=== PATIENT | female | born 1950 | race American Indian/Alaskan Native ===

== ENCOUNTER 2017-04-03 20:06 | Emergency (ER) | payer MEDICARE ==
[2017-04-04] MEDS ORDERED: TORADOL IM ONE (00:09)
--- NOTE | 2017-04-04 00:15 | Emergency Department Report ---
ED Fall HPI - General Chief Complaint: Fall Stated Complaint: FALL Time Seen by Provider: 04/03/17 23:54 Source: patient Mode of arrival: Ambulatory - History of Present Illness Initial Comments: Pt presents to ED with c/o fall while shopping at [employer]. 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 Pt denies head injury. She broke the fall with her hands. 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 denies: headache, neck pain, numbness, weakness, chest paint, shortness of breath, abdominal pain, hematuria, lightheaded, vertigo, confusion - Related Data Previous Rx's Medication Instructions Recorded Last Taken Type Aspirin EC [Aspirin Enteric Coated 81 mg PO ONCE #30 tablet. 03/10/13 Rx TAB] Simvastatin [Zocor TAB] 20 mg PO QHS #30 tablet 03/10/13 07/21/15 Rx Amoxicillin/K Clav Tab [Augmentin 1 each PO Q12HR #14 tablet 07/24/15 Unknown Rx 500 MG TAB] ALBUTEROL Inhaler [ProAir HFA 2 puff IH QID PRN #1 inhalation 02/19/16 Unknown Rx Inhaler] Fluticasone [Flonase] 1 spray NS QDAY #1 bottle 02/19/16 Unknown Rx guaiFENesin/CODEINE [Robitussin AC] 5 ml PO Q6H PRN #100 oral.liqd 02/19/16 Unknown Rx Cephalexin [Keflex] 1,000 mg PO Q12HR #40 cap 04/04/17 Unknown Rx HYDROcodone/APAP 7.5-325 [Taylor 1 each PO Q6HR PRN #20 tablet 04/04/17 Unknown Rx 7.5/325] Ibuprofen [Motrin 800 MG tab] 800 mg PO Q8HR PRN #30 tablet 04/04/17 Unknown Rx Methocarbamol [Robaxin-750] 1,500 mg PO TID #30 tablet 04/04/17 Unknown Rx Allergies Allergy/AdvReac Type Severity Reaction Status Date / Time Sulfa (Sulfonamide Allergy Rash Verified 03/07/13 17:03 Antibiotics) ED Review of Systems ROS: Stated complaint: FALL Other details as noted in HPI Comment: All other systems reviewed and negative Constitutional: denies: chills, diaphoresis, fever, malaise, weakness Eyes: denies: eye pain, eye discharge, vision change ENT: denies: throat pain, dental pain, hearing loss, epistaxis Respiratory: denies: cough, orthopnea, shortness of breath Cardiovascular: denies: chest pain Endocrine: no symptoms reported Gastrointestinal: denies: abdominal pain, nausea, diarrhea, constipation, hematemesis Genitourinary: denies: urgency, dysuria, frequency, hematuria, discharge Musculoskeletal: joint swelling (bot ankles) Skin: denies: change in color ED Past Medical Hx - Past Medical History Previous Medical History?: Yes Hx Hypertension: Yes Hx Congestive Heart Failure: No Hx Diabetes: No Hx Arthritis: Yes Hx Asthma: No Hx COPD: No Additional medical history: Psoriasis, elevated cholesterol - Surgical History Past Surgical History?: Yes Hx Breast Surgery: Yes Additional Surgical History: Hysterectomy - Social History Smoking Status: Never Smoker Substance Use Type: None - Medications Home Medications: Home Medications Medication Instructions Recorded Confirmed Last Taken Type Aspirin EC [Aspirin Enteric Coated 81 mg PO ONCE #30 tablet. 03/10/1307/21/15 Rx TAB] Simvastatin [Zocor TAB] 20 mg PO QHS #30 tablet 03/10/13 07/21/15 07/21/15 Rx Amoxicillin/K Clav Tab [Augmentin 1 each PO Q12HR #14 tablet 07/24/15 Unknown Rx 500 MG TAB] ALBUTEROL Inhaler [ProAir HFA 2 puff IH QID PRN #1 inhalation 02/19/16 Unknown Rx Inhaler] Fluticasone [Flonase] 1 spray NS QDAY #1 bottle 02/19/16 Unknown Rx guaiFENesin/CODEINE [Robitussin AC] 5 ml PO Q6H PRN #100 oral.liqd 02/19/16 Unknown Rx Cephalexin [Keflex] 1,000 mg PO Q12HR #40 cap 04/04/17 Unknown Rx HYDROcodone/APAP 7.5-325 [Taylor 1 each PO Q6HR PRN #20 tablet 04/04/17 Unknown Rx 7.5/325] Ibuprofen [Motrin 800 MG tab] 800 mg PO Q8HR PRN #30 tablet 04/04/17 Unknown Rx Methocarbamol [Robaxin-750] 1,500 mg PO TID #30 tablet 04/04/17 Unknown Rx ED Physical Exam - General Limitations: No Limitations General appearance: in no apparent distress, in distress (moderate distress) - Head Head exam: Present: atraumatic, normocephalic - Eye Eye exam: Present: normal appearance, PERRL, EOMI. Absent: scleral icterus, conjunctival injection, nystagmus - ENT ENT exam: Present: normal exam, normal orophraynx, mucous membranes moist, TM's normal bilaterally - Neck Neck exam: Present: normal inspection, full ROM. Absent: tenderness, meningismus, lymphadenopathy, thyromegaly - Respiratory Respiratory exam: Present: normal lung sounds bilaterally. Absent: respiratory distress, wheezes, rales, rhonchi, chest wall tenderness, accessory muscle use, decreased breath sounds - Cardiovascular Cardiovascular Exam: Present: regular rate, normal rhythm, normal heart sounds. Absent: systolic murmur, diastolic murmur - GI/Abdominal GI/Abdominal exam: Present: soft, distended (obese abdomen), normal bowel sounds. Absent: tenderness, guarding, rebound, rigid, hyperactive bowel sounds , hypoactive bowel sounds - Rectal Rectal exam: Present: deferred - Expanded Lower Extremity Exam Left Hip exam: Present: normal inspection, full ROM. Absent: tenderness, laceration , ecchymosis Upper Leg exam: Present: normal inspection, full ROM. Absent: tenderness, swelling, abrasion, laceration Knee exam: Present: normal inspection, full ROM. Absent: tenderness, swelling, dislocation, erythema Lower Leg exam: Present: normal inspection, full ROM. Absent: laceration, ecchymosis Ankle exam: Present: tenderness, swelling. Absent: normal inspection, full ROM , abrasion, laceration, ecchymosis, crepidus, dislocation Foot/Toe exam: Present: normal inspection, tenderness. Absent: full ROM, swelling, abrasion, laceration, ecchymosis Neuro vascular tendon exam: Present: no vascular compromise Gait: Positive: not tested/not observed Right Hip exam: Present: normal inspection, full ROM. Absent: tenderness, swelling, abrasion, laceration, ecchymosis Upper Leg exam: Present: normal inspection, full ROM. Absent: tenderness, swelling, abrasion, laceration, ecchymosis Knee exam: Present: normal inspection, full ROM. Absent: tenderness, swelling, dislocation, erythema, effusion Lower Leg exam: Present: normal inspection, full ROM. Absent: tenderness, laceration, ecchymosis Ankle exam: Present: tenderness, swelling. Absent: normal inspection, full ROM , abrasion, laceration, ecchymosis, deformity, crepidus, dislocation Foot/Toe exam: Present: normal inspection, tenderness. Absent: full ROM, swelling, abrasion, laceration, ecchymosis, deformity, dislocation, erythema, amputation Neuro vascular tendon exam: Present: no vascular compromise Gait: Positive: not tested/not observed - Back Exam Back exam: Present: normal inspection, full ROM. Absent: tenderness, CVA tenderness (L), muscle spasm, paraspinal tenderness - Neurological Exam Neurological exam: Present: alert, oriented X3, CN II-XII intact ED Course Vital Signs 04/03/17 04/04/17 20:35 00:18 Temperature 98.6 F Pulse Rate 62 Respiratory 14 18 Rate Blood Pressure 141/61 O2 Sat by Pulse 98 Oximetry ED Medical Decision Making - Radiology Data Radiology results: image reviewed interpreted by me: fracture distal portion left fibula. No fx seen right ankle Critical Care Time: No Critical care attestation.: If time is entered above; I have spent that time in minutes in the direct care of this critically ill patient, excluding procedure time. ED Disposition Clinical Impression: Closed fracture of left distal fibula, Fall, Sprain of right ankle Disposition: DC-01 TO HOME OR SELFCARE Is pt being admited?: No Does the pt Need Aspirin: No Condition: Stable Instructions: Ankle Fracture (ED), Ankle Sprain (ED), Ankle Stirrup Splint (ED) , Crutch Instructions (ED) Additional Instructions: Avoid weight bearing on your left ankle. Use crutches to assist your gait. Follow up with orthopedic surgeon. Return back to ED if your problem gets worse Prescriptions: Cephalexin [Keflex] 1,000 mg PO Q12HR #40 cap HYDROcodone/APAP 7.5-325 [Taylor 7.5/325] 1 each PO Q6HR PRN #20 tablet PRN Reason: Pain Ibuprofen [Motrin 800 MG tab] 800 mg PO Q8HR PRN #30 tablet PRN Reason: Pain Methocarbamol [Robaxin-750] 1,500 mg PO TID #30 tablet Referrals: PRIMARY CAREMD [Primary Care Provider] - 3-5 Days PATRICIA GARRETT MD [Staff Physician] - 3-5 Days (Pls call office to set up an appointment) Time of Disposition: 03:12
[2017-04-04] MEDS ORDERED: MORPHINE IM ONE (02:14)
[2017-04-04] MEDS ORDERED: ZOFRAN ODT PO ONE (02:14)
[2017-04-04 04:27] VITALS: BP 132/62
--- NOTE | 2017-04-04 10:06 | XRay Report ---
RIGHT ANKLE, 3 views: History: Pain after fall. Findings: Mild soft tissue swelling is identified. No acute osseous abnormality or joint pathology is identified. The fifth metatarsal base is intact. Small plantar spur. Impression: Soft tissue swelling. No acute osseous injury.
--- NOTE | 2017-04-04 10:06 | XRay Report ---
LEFT ANKLE, 3 views: History: Pain after fall. Bone mineralization is normal. No acute osseous abnormality or joint pathology is identified. Moderate diffuse soft tissue swelling is noted. Plantar spur. IMPRESSION: Soft tissue swelling. No acute osseous injury.
== END 2017-04-04 04:39 | disposition home or self-care (01) ==
LOC: ED 20:06
DX: S82.832A Other fracture of upper and lower end of left fibula, initial encounter for closed fracture (principal); S93.401A Sprain of unspecified ligament of right ankle, initial encounter; W19.XXXA Unspecified fall, initial encounter; Y93.9 Activity, unspecified; Y92.89 Other specified places as the place of occurrence of the external cause; Y99.9 Unspecified external cause status; I10 Essential (primary) hypertension; M19.90 Unspecified osteoarthritis, unspecified site; Z79.82 Long term (current) use of aspirin; Z88.2 Allergy status to sulfonamides
CPT/HCPCS: 29515; 73610; 96372; 99284; J1885; J2270; Q0162

== ENCOUNTER 2018-03-18 13:27 | Emergency (ER) | payer BC, MEDICARE ==
[2018-03-18] MEDS ORDERED: TYLENOL ONE (14:02)
[2018-03-18] MEDS ORDERED: TYLENOL PO ONE (14:02)
[2018-03-18] MEDS ORDERED: DECADRON IM ONE (15:45)
[2018-03-18] MEDS ORDERED: ATROVENT IH ONE (15:45)
[2018-03-18] MEDS ORDERED: NORCO 5/325 PO ONE (15:45)
[2018-03-18] MEDS ORDERED: PEPCID PO ONE (15:45)
[2018-03-18] MEDS ORDERED: PROVENTIL IH ONE (15:45)
--- NOTE | 2018-03-18 15:48 | Emergency Department Report ---
Blank Doc - Documentation Documentation: Patient is a 67-year-old female who states she's had some cough chest discomfort and wheezing for the past 3 days. Also patient is complaining of some epigastric discomfort. Patient states she's had some off-and-on leg swelling for the past 3 weeks. Focused physical exam patient does have pedal edema that is trace. Patient has diffuse wheeze. Patient removed to a treatment room for a nebulized treatment. Chest x-ray will be performed as well. The patient will be reassessed.
--- NOTE | 2018-03-18 16:23 | XRay Report ---
FINAL REPORT EXAM: XR CHEST ROUTINE 2V HISTORY: cough with wheeze TECHNIQUE: PA and lateral views of the chest Comparison: None FINDINGS: There is no evidence of focal infiltrate, pneumothorax or pleural fluid collection. The cardiac silhouette is enlarged. The thoracic aorta is mildly tortuous with atherosclerotic vascular calcification. The bony structures are notable for spondylitic change of the thoracic spine. IMPRESSION: 1. No evidence of an acute pulmonary process. 2. Enlarged cardiac silhouette. 3. Atherosclerotic vascular calcification thoracic aorta.
--- NOTE | 2018-03-18 17:22 | Emergency Department Report ---
Minor Respiratory - HPI Chief Complaint: Upper Respiratory Infection Stated Complaint: FEET SWOLLEN Time Seen by Provider: 03/18/18 15:25 Duration: 1 Day Pain Location: Chest (chest discomfort with cough) Severity: mild Minor Respiratory: Yes Able to Tolerate Fluids, Yes Cough, Yes Chest Pain ( chest discomfort), No Rhinorrhea, No Sore Throat, No Ear Pain, No Sick Contacts , No Hemoptysis, No Shortness of Breath, No Fever Other History: This is a 67-year-old -[place] female who presents with a cough and chest discomfort that started yesterday. Past medical history of hypertension and arthritis. Patient states she went to urgent care earlier today and they told her to follow here because she her feet are swollen. She was diagnosed with upper respiratory infection. Patient states cough is productive. Patient states swelling to ankles and feet started 2-3 weeks ago without pain. Patient states the swelling is normal for her. Patient denies shortness of breath, fever, rhinorrhea, body aches, and abdominal pain. ED Review of Systems ROS: Stated complaint: FEET SWOLLEN Other details as noted in HPI Constitutional: denies: chills, fever ENT: denies: ear pain, throat pain, dental pain, hearing loss, epistaxis, congestion Respiratory: cough. denies: shortness of breath, wheezing Cardiovascular: chest pain (chest discomfort with cough), edema (bilateral lower extremity swelling from ankles to feet). denies: palpitations Gastrointestinal: denies: abdominal pain, nausea, diarrhea Skin: denies: rash, lesions Neurological: denies: headache, weakness, paresthesias Psychiatric: denies: anxiety, depression ED Past Medical Hx - Past Medical History Hx Hypertension: Yes Hx Congestive Heart Failure: No Hx Diabetes: No Hx Arthritis: Yes Hx Asthma: No Hx COPD: No Additional medical history: Psoriasis, elevated cholesterol - Surgical History Hx Breast Surgery: Yes Additional Surgical History: Hysterectomy - Social History Smoking Status: Never Smoker Substance Use Type: None - Medications Home Medications: Home Medications Medication Instructions Recorded Confirmed Last Taken Type Aspirin EC [Aspirin Enteric Coated 81 mg PO ONCE #30 tablet. 03/10/1307/21/15 Rx TAB] Simvastatin [Zocor TAB] 20 mg PO QHS #30 tablet 03/10/13 07/21/15 07/21/15 Rx Amoxicillin/K Clav Tab [Augmentin 1 each PO Q12HR #14 tablet 07/24/15 Unknown Rx 500 MG TAB] ALBUTEROL Inhaler (OR & NICU) 2 puff IH QID PRN #1 inhalation 02/19/16 Unknown Rx [ProAir HFA Inhaler] Fluticasone [Flonase] 1 spray NS QDAY #1 bottle 02/19/16 Unknown Rx guaiFENesin/CODEINE [Robitussin AC] 5 ml PO Q6H PRN #100 oral.liqd 02/19/16 Unknown Rx HYDROcodone/APAP 7.5-325 [Loris 1 each PO Q6HR PRN #20 tablet 04/04/17 Unknown Rx 7.5/325] Ibuprofen [Motrin 800 MG tab] 800 mg PO Q8HR PRN #30 tablet 04/04/17 Unknown Rx Methocarbamol [Robaxin-750] 1,500 mg PO TID #30 tablet 04/04/17 Unknown Rx Minor Respiratory Exam - Exam General: Vital signs noted. No distress. Alert and acting appropriately. HEENT: Yes Moist Mucous Membranes, Yes Rhinorrhea (turbinate is mildly congested with clear discharge), No Pharyngeal Erythema, No Pharyngeal Exudates , No Conjuctival Injection, No Frontal Tenderness, No Maxillary Tenderness Ear: Neither TM Bulge, Neither TM Erythema, Neither EAC Pain, Neither EAC Discharge Neck: Yes Supple, No Adenopathy Lungs: Yes Good Air Exchange, No Wheezes, No Ronchi, No Stridor, No Cough, No Labored Respirations, No Retractions, No Use of Accessory Muscles, No Other Abnormal Lung Sounds Heart: Yes Regular, No Murmur Abdomen: Yes Normal Bowel Sounds, No Tenderness, No Peritoneal Signs Skin: Yes Edema (bilateral nonpitting edema from ankles to feet), No Rash Neurologic: Alert and oriented, no deficits. Musculoskeletal: Unremarkable. ED Course Vital Signs 03/18/18 03/18/18 13:53 16:28 Temperature 98.8 F Pulse Rate 70 Respiratory 18 18 Rate Blood Pressure 132/67 O2 Sat by Pulse 97 Oximetry ED Medical Decision Making - Radiology Data Radiology results: report reviewed, image reviewed - Medical Decision Making This patient was examined by myself and Dr. Rajan in emergency room. Patient is stable and in no distress. Vitals normal. Chest xray has been obtained and dictated by radiologist. Patient notified of x-ray results with no questions. Follow-up with cardiology for further evaluation and continuous care. Discharged home stable. Encouraged to do supportive care for URI. Follow up with Primary Care Provider at [facility] in 2-3 days. Critical care attestation.: If time is entered above; I have spent that time in minutes in the direct care of this critically ill patient, excluding procedure time. ED Disposition Clinical Impression: Enlargement of cardiac chamber on chest x-ray Upper respiratory infection Qualifiers: URI type: acute nasopharyngitis (common cold) Qualified Code(s): J00 - Acute nasopharyngitis [common cold] Disposition: TO HOME OR SELFCARE Is pt being admited?: No Does the pt Need Aspirin: No Condition: Stable Instructions: Upper Respiratory Infection (ED) Additional Instructions: Increase fluid intake and rest. Wash hands frequently. Continue taking Tylenol or ibuprofen to control fever. Follow up with cardiology within the next week for further evaluation. F/U with Primary Care Provider. Return to ER if fever, SOB, or difficulty breathing after 48 hours of supportive care. Referrals: [facility] [Outside] - 3-5 Days YVROSE HEATH MD [Staff Physician] - 3-5 Days Time of Disposition: 17:31 Print Language: KINYARWANDA
[2018-03-18 17:58] VITALS: BP 136/76
== END 2018-03-18 17:55 | disposition home or self-care (01) ==
LOC: ED 13:27
DX: J00 Acute nasopharyngitis [common cold] (principal); I10 Essential (primary) hypertension; M19.90 Unspecified osteoarthritis, unspecified site; E78.00 Pure hypercholesterolemia, unspecified
CPT/HCPCS: 71046; 94640; 96372; 99283; J1100

== ENCOUNTER 2018-08-18 13:12 | Emergency (ER) | payer BC, MEDICARE ==
--- NOTE | 2018-08-18 13:21 | Emergency Department Report ---
Blank Doc - Documentation Documentation: This is a 68-year-old female that present with ground level fall that tripped and fall. Patient complaint of pelvic pain and bilateral knee pain. Denies any head or back pain or trauma. Denies any other complaints. This initial assessment diagnostic orders/clinical plan/treatment(s) is/are subject to change based on patient's health status, clinical progression and re- assessment by fellow clinical providers in the ED. Further treatment and workup at subsequent clinical providers discretion. Patient/guardians urged not to elope from ED s their condition may be serious if not clinically assessed and managed. Initial orders include: 1-Patient sent to [facility] for further evaluation and treatment 2- labs 3- xrays
[2018-08-18 13:23] VITALS: BP 142/75
[2018-08-18 14:12] LABS: Bilirubin,Urine NEG (Negative); Blood,Urine NEG (Negative); Color,Urine Yellow (Yellow); Mucus,Urine FEW /HPF; Protein,Urine <15 mg/dL mg/dL (Negative)
[2018-08-18 14:49] LABS: Basophils % (Auto) 0.3 % (0.0-1.8); Eosinophils # (Auto) 0.1 K/mm3 (0.0-0.4); Eosinophils % (Auto) 1.4 % (0.0-4.3); Hematocrit 37.2 % (30.3-42.9); Hemoglobin 12.4 gm/dl (10.1-14.3); Lymphocytes # (Auto) 2.7 K/mm3 (1.2-5.4); Lymphocytes % (Auto) 36.5 % (13.4-35.0); Mean Corpuscular HGB Conc 33 % (30-34); Mean Corpuscular Volume 89 fl (79-97); Monocytes # (Auto) 0.4 K/mm3 (0.0-0.8); Monocytes % (Auto) 5.2 % (0.0-7.3); Platelet Count 236 K/mm3 (140-440); Red Cell Distribution Width 12.8 % (13.2-15.2)
[2018-08-18 15:04] LABS: Alanine Aminotransferase 15 units/L (7-56); Albumin 4.3 g/dL (3.9-5); BUN/Creatinine Ratio 10; Blood Urea Nitrogen 7 mg/dL (7-17); Calcium 9.9 mg/dL (8.4-10.2); Hemolysis Index 4
--- NOTE | 2018-08-18 15:28 | XRay Report ---
LUMBAR SPINE RADIOGRAPHS INDICATION: Low back pain. COMPARISON: None similar. FINDINGS: AP and lateral lumbar spine radiographs demonstrate normal vertebral body stature, alignment and disc heights except for L5-S1 disc narrowing questioned. Multilevel lumbar and imaged lower thoracic spine degenerative spurring noted. Lower lumbar facet arthropathy may also be present. Nonobstructive bowel gas pattern. Intact SI joints. CONCLUSION: No acute radiographic abnormality with multilevel spinal spondylosis noted, as described. Thank you for the opportunity to participate in this patient's care.
--- NOTE | 2018-08-18 15:31 | XRay Report ---
BILATERAL KNEE RADIOGRAPHS INDICATION: Low back pain. COMPARISON: None similar. FINDINGS: AP, lateral and oblique bilateral knee radiographs demonstrate intact overall articulation. Bilateral degenerative changes noted, most involving the patellofemoral compartments with narrowing and patellar articular pole spurring, right more than left. No significant suprapatellar effusion. Mild degenerative spurring also involves the tibial spines and the medial compartment, right more than left. Possible osteopenia. CONCLUSION: Bilateral knee osteoarthritic changes, right greater than left, as described. Please correlate. Thank you for the opportunity to participate in this patient's care.
--- NOTE | 2018-08-18 15:58 | Emergency Department Report ---
ED General Adult HPI - General Chief complaint: Fall Stated complaint: ABD PAIN/LEG PAIN Time Seen by Provider: 08/18/18 13:19 Source: EMS Mode of arrival: Ambulatory Limitations: No Limitations - History of Present Illness Initial comments: Patient is a 68-year-old Female who is presenting with 3 days of lower abdominal pain. Patient states she has a pressure sensation in the suprapubic region with radiation to the back. Her pain as a 7 out of 10 in severity. She has dysuria at the end of her urinary stream. Patient also states she's had some night sweats and chills as well. Patient also of note have a fall several days ago on her porch and injured both knees. Patient is having some mild low back pain as well as already mentioned. Patient states knee pain is worse with walking and bearing weight. Severity scale (0 -10): 7 - Related Data Previous Rx's Medication Instructions Recorded Last Taken Type Aspirin EC [Aspirin Enteric Coated 81 mg PO ONCE #30 tablet. 03/10/13 07/21/15 Rx TAB] Simvastatin [Zocor TAB] 20 mg PO QHS #30 tablet 03/10/13 07/21/15 Rx Amoxicillin/K Clav Tab [Augmentin 1 each PO Q12HR #14 tablet 07/24/15 Unknown Rx 500 MG TAB] ALBUTEROL Inhaler (OR & NICU) 2 puff IH QID PRN #1 inhalation 02/19/16 Unknown Rx [ProAir HFA Inhaler] Fluticasone [Flonase] 1 spray NS QDAY #1 bottle 02/19/16 Unknown Rx guaiFENesin/CODEINE [Robitussin AC] 5 ml PO Q6H PRN #100 oral.liqd 02/19/16 Unknown Rx HYDROcodone/APAP 7.5-325 [Ponce 1 each PO Q6HR PRN #20 tablet 04/04/17 Unknown Rx 7.5/325] Ibuprofen [Motrin 800 MG tab] 800 mg PO Q8HR PRN #30 tablet 04/04/17 Unknown Rx Methocarbamol [Robaxin-750] 1,500 mg PO TID #30 tablet 04/04/17 Unknown Rx ALBUTEROL Inhaler (OR & NICU) 2 puff IH QID PRN #1 inhalation 03/20/18 Unknown Rx [ProAir HFA Inhaler] Benzonatate [Tessalon Perles] 100 mg PO Q8HR #10 capsule 03/20/18 Unknown Rx predniSONE [Deltasone] 20 mg PO QDAY #5 tab 03/20/18 Unknown Rx Doxycycline [Vibramycin CAP] 100 mg PO Q12HR #14 capsule 08/18/18 Unknown Rx Phenazopyridine [Pyridium] 100 mg PO TID 2 Days tab 08/18/18 Unknown Rx traMADol [Ultram] 50 mg PO Q6HR PRN #10 tablet 08/18/18 Unknown Rx Allergies Allergy/AdvReac Type Severity Reaction Status Date / Time Sulfa (Sulfonamide Allergy Rash Verified 03/07/13 17:03 Antibiotics) ED Review of Systems ROS: Stated complaint: ABD PAIN/LEG PAIN Other details as noted in HPI Comment: All other systems reviewed and negative ED Past Medical Hx - Past Medical History Previous Medical History?: Yes Hx Hypertension: Yes Hx CVA: No Hx Heart Attack/AMI: No Hx Congestive Heart Failure: No Hx Diabetes: No Hx Deep Vein Thrombosis: No Hx Pulmonary Embolism: No Hx GERD: No Hx Liver Disease: No Hx Renal Disease: No Hx of Cancer: No Hx Sickle Cell Disease: No Hx Arthritis: Yes Hx Headaches / Migraines: No Hx Seizures: No Hx Kidney Stones: No Hx Psychiatric Treatment: No Hx Asthma: No Hx COPD: No Hx Tuberculosis: No Hx Dementia: No Hx HIV: No Additional medical history: Psoriasis, elevated cholesterol - Surgical History Past Surgical History?: Yes Hx Coronary Stent: No Hx Open Heart Surgery: No Hx Pacemaker: No Hx Internal Defibrillator: No Hx Cholecystectomy: No Hx Appendectomy: No Hx Breast Surgery: No Additional Surgical History: Hysterectomy - Social History Smoking Status: Never Smoker Substance Use Type: None - Medications Home Medications: Home Medications Medication Instructions Recorded Confirmed Last Taken Type Aspirin EC [Aspirin Enteric Coated 81 mg PO ONCE #30 tablet. 03/10/13 07/21/15 07/21/15 Rx TAB] Simvastatin [Zocor TAB] 20 mg PO QHS #30 tablet 03/10/13 07/21/15 07/21/15 Rx Amoxicillin/K Clav Tab [Augmentin 1 each PO Q12HR #14 tablet 07/24/15 Unknown Rx 500 MG TAB] ALBUTEROL Inhaler (OR & NICU) 2 puff IH QID PRN #1 inhalation 02/19/16 Unknown Rx [ProAir HFA Inhaler] Fluticasone [Flonase] 1 spray NS QDAY #1 bottle 02/19/16 Unknown Rx guaiFENesin/CODEINE [Robitussin AC] 5 ml PO Q6H PRN #100 oral.liqd 02/19/16 Unknown Rx HYDROcodone/APAP 7.5-325 [Ponce 1 each PO Q6HR PRN #20 tablet 04/04/17 Unknown Rx 7.5/325] Ibuprofen [Motrin 800 MG tab] 800 mg PO Q8HR PRN #30 tablet 04/04/17 Unknown Rx Methocarbamol [Robaxin-750] 1,500 mg PO TID #30 tablet 04/04/17 Unknown Rx ALBUTEROL Inhaler (OR & NICU) 2 puff IH QID PRN #1 inhalation 03/20/18 Unknown Rx [ProAir HFA Inhaler] Benzonatate [Tessalon Perles] 100 mg PO Q8HR #10 capsule 03/20/18 Unknown Rx predniSONE [Deltasone] 20 mg PO QDAY #5 tab 03/20/18 Unknown Rx Doxycycline [Vibramycin CAP] 100 mg PO Q12HR #14 capsule 08/18/18 Unknown Rx Phenazopyridine [Pyridium] 100 mg PO TID 2 Days tab 08/18/18 Unknown Rx traMADol [Ultram] 50 mg PO Q6HR PRN #10 tablet 08/18/18 Unknown Rx ED Physical Exam - General Limitations: No Limitations General appearance: alert, in no apparent distress - Head Head exam: Present: atraumatic, normocephalic - Eye Eye exam: Present: normal appearance - ENT ENT exam: Present: mucous membranes moist - Neck Neck exam: Present: normal inspection - Respiratory Respiratory exam: Present: normal lung sounds bilaterally. Absent: respiratory distress, wheezes, rales - Cardiovascular Cardiovascular Exam: Present: regular rate, normal rhythm. Absent: systolic murmur, diastolic murmur, rubs, gallop - GI/Abdominal GI/Abdominal exam: Present: soft, normal bowel sounds. Absent: distended, tenderness, guarding, rebound - Extremities Exam Extremities exam: Present: normal inspection, joint swelling (and has a clsh-fl-giglesve effusion bilateral knees. She does have full range of motion.) - Back Exam Back exam: Present: normal inspection - Neurological Exam Neurological exam: Present: alert, oriented X3 - Psychiatric Psychiatric exam: Present: normal affect, normal mood - Skin Skin exam: Present: warm, dry, intact, normal color. Absent: rash ED Course Vital Signs 08/18/18 13:19 Temperature 98.1 F Pulse Rate 77 Blood Pressure 142/75 O2 Sat by Pulse 98 Oximetry ED Medical Decision Making - Lab Data Result diagrams: 08/18/18 14:24 08/18/18 14:24 Lab Results 08/18/18 08/18/18 08/18/18 Range/Units 13:52 14:24 14:24 WBC 7.3 (4.5-11.0) K/mm3 RBC 4.20 (3.65-5.03) M/mm3 Hgb 12.4 (10.1-14.3) gm/dl Hct 37.2 (30.3-42.9) % MCV 89 (79-97) fl MCH 30 (28-32) pg MCHC 33 (30-34) % RDW 12.8 L (13.2-15.2) % Plt Count 236 (140-440) K/mm3 Lymph % (Auto) 36.5 H (13.4-35.0) % [place] % (Auto) 5.2 (0.0-7.3) % Eos % (Auto) 1.4 (0.0-4.3) % Baso % (Auto) 0.3 (0.0-1.8) % Lymph # 2.7 (1.2-5.4) K/mm3 [place] # 0.4 (0.0-0.8) K/mm3 Eos # 0.1 (0.0-0.4) K/mm3 Baso # 0.0 (0.0-0.1) K/mm3 Seg Neutrophils % 56.6 (40.0-70.0) % Seg Neutrophils # 4.2 (1.8-7.7) K/mm3 Sodium 142 (137-145) mmol/L Potassium 3.0 L (3.6-5.0) mmol/L Chloride 99.5 (98-107) mmol/L Carbon Dioxide 33 H (22-30) mmol/L Anion Gap 13 mmol/L BUN 7 (7-17) mg/dL Creatinine 0.7 (0.7-1.2) mg/dL Estimated GFR > 60 ml/min BUN/Creatinine Ratio 10 % Glucose 95 (65-100) mg/dL Calcium 9.9 (8.4-10.2) mg/dL Total Bilirubin 0.70 (0.1-1.2) mg/dL AST 21 (5-40) units/L ALT 15 (7-56) units/L Alkaline Phosphatase 62 (35-129) units/L Total Protein 7.5 (6.3-8.2) g/dL Albumin 4.3 (3.9-5) g/dL Albumin/Globulin Ratio 1.3 % Urine Color Yellow (Yellow) Urine Turbidity Clear (Clear) Urine pH 7.0 (5.0-7.0) Ur Specific [place] 1.010 (1.003-1.030) Urine Protein <15 mg/dl (Negative) mg/dL Urine Glucose (UA) Neg (Negative) mg/dL Urine Ketones Neg (Negative) mg/dL Urine Blood Neg (Negative) Urine Nitrite Neg (Negative) Urine Bilirubin Neg (Negative) Urine Urobilinogen 4.0 (<2.0) mg/dL Ur Leukocyte Esterase Neg (Negative) Urine WBC (Auto) 1.0 (0.0-6.0) /HPF Urine RBC (Auto) 2.0 (0.0-6.0) /HPF Urine Mucus Few /HPF - Radiology Data X-ray of the bilateral knees and lumbar spine shows degenerative changes but no acute fracture - Medical Decision Making Despite the patient's urinalysis looking relatively normal patient has very classic urinary symptoms. Patient to be started on doxycycline for interstitial cystitis and will be discharged home. Critical care attestation.: If time is entered above; I have spent that time in minutes in the direct care of this critically ill patient, excluding procedure time. ED Disposition Clinical Impression: Interstitial cystitis Knee effusion Qualifiers: Laterality: bilateral Qualified Code(s): M25.461 - Effusion, right knee; M25.462 - Effusion, left knee Disposition: TO HOME OR SELFCARE Is pt being admited?: No Does the pt Need Aspirin: No Condition: Stable Instructions: Knee Effusion (ED), Osteoarthritis (ED), Urinary Tract Infection in Women (ED) [facility] [Primary Care Provider] - 3-5 Days Forms: Work/School Release Form(ED) Time of Disposition: 15:58
== END 2018-08-18 16:11 | disposition home or self-care (01) ==
LOC: ED 13:12
DX: N30.10 Interstitial cystitis (chronic) without hematuria (principal); M25.461 Effusion, right knee; M25.462 Effusion, left knee; I10 Essential (primary) hypertension; M19.90 Unspecified osteoarthritis, unspecified site; Z90.710 Acquired absence of both cervix and uterus; Z88.2 Allergy status to sulfonamides
CPT/HCPCS: 36415; 72100; 80053; 81001; 85025

== ENCOUNTER 2018-11-15 13:36 | Emergency (ER) | payer BC, MEDICARE ==
[2018-11-15 14:05] VITALS: BP 157/72
--- NOTE | 2018-11-15 14:05 | Emergency Department Report ---
ED ENT HPI - General Chief complaint: Dental/Oral Stated complaint: GUM PAIN Time Seen by Provider: 11/15/18 13:58 Source: patient Mode of arrival: Ambulatory Limitations: No Limitations - History of Present Illness Initial comments: This is a 68-year-old female nontoxic well in appearance with no signs of distress presents to the ED with complaint of upper gum pain. Patient denies any facial swelling. Denies following up with a dentist. Denies any fever, chills, headache, nausea, vomiting, chest pain or SOB. Denies any other complaints. Stated allergies to Sulfa. MD complaint: other (GUM PAIN) -: days(s) 1 - gun pain Severity: mild Severity scale (0 -10): 8 Quality: aching Consistency: constant Improves with: none Worsens with: none Associated Symptoms: gum swelling. denies: fever, cough, toothache, pain with swallowing, sore throat, tinnitus, hearing loss, discharge from ear, rhinorrhea - Related Data Previous Rx's Medication Instructions Recorded Last Taken Type Aspirin EC [Aspirin Enteric Coated 81 mg PO ONCE #30 tablet. 03/10/13 07/21/15 Rx TAB] Simvastatin [Zocor TAB] 20 mg PO QHS #30 tablet 03/10/13 07/21/15 Rx Amoxicillin/K Clav Tab [Augmentin 1 each PO Q12HR #14 tablet 07/24/15 Unknown Rx 500 MG TAB] ALBUTEROL Inhaler (OR & NICU) 2 puff IH QID PRN #1 inhalation 02/19/16 Unknown Rx [ProAir HFA Inhaler] Fluticasone [Flonase] 1 spray NS QDAY #1 bottle 02/19/16 Unknown Rx guaiFENesin/CODEINE [Robitussin AC] 5 ml PO Q6H PRN #100 oral.liqd 02/19/16 Unknown Rx HYDROcodone/APAP 7.5-325 [Alpha 1 each PO Q6HR PRN #20 tablet 04/04/17 Unknown Rx 7.5/325] Ibuprofen [Motrin 800 MG tab] 800 mg PO Q8HR PRN #30 tablet 04/04/17 Unknown Rx Methocarbamol [Robaxin-750] 1,500 mg PO TID #30 tablet 04/04/17 Unknown Rx ALBUTEROL Inhaler (OR & NICU) 2 puff IH QID PRN #1 inhalation 03/20/18 Unknown Rx [ProAir HFA Inhaler] Benzonatate [Tessalon Perles] 100 mg PO Q8HR #10 capsule 03/20/18 Unknown Rx predniSONE [Deltasone] 20 mg PO QDAY #5 tab 03/20/18 Unknown Rx DOXYCYCLINE Hyclate [Vibramycin 100 mg PO Q12HR #14 capsule 08/18/18 Unknown Rx CAP] Phenazopyridine [Pyridium] 100 mg PO TID 2 Days tab 08/18/18 Unknown Rx traMADol [Ultram] 50 mg PO Q6HR PRN #10 tablet 08/18/18 Unknown Rx Acetaminophen/Codeine [Tylenol 1 tab PO Q6H PRN #12 tab 11/15/18 Unknown Rx /Codeine # 3 tab] Amoxicillin [Amoxicillin TAB] 875 mg PO BID #20 tablet 11/15/18 Unknown Rx Chlorhexidine Mouthwash [Peridex] 15 ml MM BID #1 bottle 11/15/18 Unknown Rx Allergies Allergy/AdvReac Type Severity Reaction Status Date / Time Sulfa (Sulfonamide Allergy Rash Verified 03/07/13 17:03 Antibiotics) ED Dental HPI - General Chief complaint: Dental/Oral Stated complaint: GUM PAIN Time Seen by Provider: 11/15/18 13:58 Source: patient Mode of arrival: Ambulatory Limitations: No Limitations - Related Data Previous Rx's Medication Instructions Recorded Last Taken Type Aspirin EC [Aspirin Enteric Coated 81 mg PO ONCE #30 tablet.dr 03/10/13 07/21/15 Rx TAB] Simvastatin [Zocor TAB] 20 mg PO QHS #30 tablet 03/10/13 07/21/15 Rx Amoxicillin/K Clav Tab [Augmentin 1 each PO Q12HR #14 tablet 07/24/15 Unknown Rx 500 MG TAB] ALBUTEROL Inhaler (OR & NICU) 2 puff IH QID PRN #1 inhalation 02/19/16 Unknown Rx [ProAir HFA Inhaler] Fluticasone [Flonase] 1 spray NS QDAY #1 bottle 02/19/16 Unknown Rx guaiFENesin/CODEINE [Robitussin AC] 5 ml PO Q6H PRN #100 oral.liqd 02/19/16 Unknown Rx HYDROcodone/APAP 7.5-325 [Alpha 1 each PO Q6HR PRN #20 tablet 04/04/17 Unknown Rx 7.5/325] Ibuprofen [Motrin 800 MG tab] 800 mg PO Q8HR PRN #30 tablet 04/04/17 Unknown Rx Methocarbamol [Robaxin-750] 1,500 mg PO TID #30 tablet 04/04/17 Unknown Rx ALBUTEROL Inhaler (OR & NICU) 2 puff IH QID PRN #1 inhalation 03/20/18 Unknown Rx [ProAir HFA Inhaler] Benzonatate [Tessalon Perles] 100 mg PO Q8HR #10 capsule 03/20/18 Unknown Rx predniSONE [Deltasone] 20 mg PO QDAY #5 tab 03/20/18 Unknown Rx DOXYCYCLINE Hyclate [Vibramycin 100 mg PO Q12HR #14 capsule 08/18/18 Unknown Rx CAP] Phenazopyridine [Pyridium] 100 mg PO TID 2 Days tab 08/18/18 Unknown Rx traMADol [Ultram] 50 mg PO Q6HR PRN #10 tablet 08/18/18 Unknown Rx Acetaminophen/Codeine [Tylenol 1 tab PO Q6H PRN #12 tab 11/15/18 Unknown Rx /Codeine # 3 tab] Amoxicillin [Amoxicillin TAB] 875 mg PO BID #20 tablet 11/15/18 Unknown Rx Chlorhexidine Mouthwash [Peridex] 15 ml MM BID #1 bottle 11/15/18 Unknown Rx Allergies Allergy/AdvReac Type Severity Reaction Status Date / Time Sulfa (Sulfonamide Allergy Rash Verified 03/07/13 17:03 Antibiotics) ED Review of Systems ROS: Stated complaint: GUM PAIN Other details as noted in HPI Constitutional: denies: chills, fever Eyes: denies: eye pain, eye discharge, vision change ENT: denies: ear pain, throat pain Respiratory: denies: cough, shortness of breath, wheezing Cardiovascular: denies: chest pain, palpitations Endocrine: no symptoms reported Gastrointestinal: denies: abdominal pain, nausea, diarrhea Genitourinary: denies: urgency, dysuria, discharge Musculoskeletal: denies: back pain, joint swelling, arthralgia Skin: denies: rash, lesions Neurological: denies: headache, weakness, paresthesias Psychiatric: denies: anxiety, depression Hematological/Lymphatic: denies: easy bleeding, easy bruising ED Past Medical Hx - Past Medical History Previous Medical History?: Yes Hx Hypertension: Yes Hx CVA: No Hx Heart Attack/AMI: No Hx Congestive Heart Failure: No Hx Diabetes: No Hx Deep Vein Thrombosis: No Hx Pulmonary Embolism: No Hx GERD: No Hx Liver Disease: No Hx Renal Disease: No Hx Sickle Cell Disease: No Hx Arthritis: Yes Hx Headaches / Migraines: No Hx Seizures: No Hx Kidney Stones: No Hx Psychiatric Treatment: No Hx Asthma: No Hx COPD: No Hx Tuberculosis: No Hx Dementia: No Hx HIV: No Additional medical history: Psoriasis, elevated cholesterol - Surgical History Past Surgical History?: Yes Hx Coronary Stent: No Hx Open Heart Surgery: No Hx Pacemaker: No Hx Internal Defibrillator: No Hx Cholecystectomy: No Hx Appendectomy: No Hx Breast Surgery: No Additional Surgical History: Hysterectomy - Social History Smoking Status: Never Smoker Substance Use Type: None - Medications Home Medications: Home Medications Medication Instructions Recorded Confirmed Last Taken Type Aspirin EC [Aspirin Enteric Coated 81 mg PO ONCE #30 tablet. 03/10/13 07/21/15 07/21/15 Rx TAB] Simvastatin [Zocor TAB] 20 mg PO QHS #30 tablet 03/10/13 07/21/15 07/21/15 Rx Amoxicillin/K Clav Tab [Augmentin 1 each PO Q12HR #14 tablet 07/24/15 Unknown Rx 500 MG TAB] ALBUTEROL Inhaler (OR & NICU) 2 puff IH QID PRN #1 inhalation 02/19/16 Unknown Rx [ProAir HFA Inhaler] Fluticasone [Flonase] 1 spray NS QDAY #1 bottle 02/19/16 Unknown Rx guaiFENesin/CODEINE [Robitussin AC] 5 ml PO Q6H PRN #100 oral.liqd 02/19/16 Unknown Rx HYDROcodone/APAP 7.5-325 [Alpha 1 each PO Q6HR PRN #20 tablet 04/04/17 Unknown Rx 7.5/325] Ibuprofen [Motrin 800 MG tab] 800 mg PO Q8HR PRN #30 tablet 04/04/17 Unknown Rx Methocarbamol [Robaxin-750] 1,500 mg PO TID #30 tablet 04/04/17 Unknown Rx ALBUTEROL Inhaler (OR & NICU) 2 puff IH QID PRN #1 inhalation 03/20/18 Unknown Rx [ProAir HFA Inhaler] Benzonatate [Tessalon Perles] 100 mg PO Q8HR #10 capsule 03/20/18 Unknown Rx predniSONE [Deltasone] 20 mg PO QDAY #5 tab 03/20/18 Unknown Rx DOXYCYCLINE Hyclate [Vibramycin 100 mg PO Q12HR #14 capsule 08/18/18 Unknown Rx CAP] Phenazopyridine [Pyridium] 100 mg PO TID 2 Days tab 08/18/18 Unknown Rx traMADol [Ultram] 50 mg PO Q6HR PRN #10 tablet 08/18/18 Unknown Rx Acetaminophen/Codeine [Tylenol 1 tab PO Q6H PRN #12 tab 11/15/18 Unknown Rx /Codeine # 3 tab] Amoxicillin [Amoxicillin TAB] 875 mg PO BID #20 tablet 11/15/18 Unknown Rx Chlorhexidine Mouthwash [Peridex] 15 ml MM BID #1 bottle 11/15/18 Unknown Rx ED Physical Exam - General Limitations: No Limitations General appearance: alert, in no apparent distress - Head Head exam: Present: atraumatic, normocephalic - Expanded ENT Exam Expanded Ear exam: Present: normal external inspection Mouth exam: Present: normal external inspection. Absent: drooling, trismus, muffled voice Teeth exam: Present: gingival enlargement Throat exam: Positive: normal inspection. Negative: tonsillar erythema, tonsillomegaly, tonsillar exudate, R peritonsillar mass, L peritonsillar mass - Neck Neck exam: Present: normal inspection, full ROM. Absent: tenderness, meningismus, lymphadenopathy - Extremities Exam Extremities exam: Present: normal inspection, full ROM - Back Exam Back exam: Present: normal inspection, full ROM - Neurological Exam Neurological exam: Present: alert, oriented X3 - Psychiatric Psychiatric exam: Present: normal affect, normal mood - Skin Skin exam: Present: warm, dry, intact, normal color. Absent: rash ED Course - Reevaluation(s) Reevaluation #1: 11/15/18 14:03 Patient is speaking in full sentences with no signs of distress noted. ED Medical Decision Making - Medical Decision Making Patient was instructed to Follow-up with a dentist doctor in 3-5 days or if symptoms worsen and continue return to emergency room as soon as possible. At time of discharge, the patient does not seem toxic or ill in appearance. No acute signs of distress noted. Patient agrees to discharge treatment plan of care. No further questions noted by the patient. Critical care attestation.: If time is entered above; I have spent that time in minutes in the direct care of this critically ill patient, excluding procedure time. ED Disposition Clinical Impression: Gingivitis Disposition: TO HOME OR SELFCARE Is pt being admited?: No Does the pt Need Aspirin: No Condition: Stable Instructions: Gingivitis (ED), Acetaminophen/Codeine (By mouth) Additional Instructions: Follow-up with a dentist doctor in 3-5 days or if symptoms worsen and continue return to emergency room as soon as possible. Prescriptions: Amoxicillin [Amoxicillin TAB] 875 mg PO BID #20 tablet Chlorhexidine Mouthwash [Peridex] 15 ml MM BID #1 bottle Acetaminophen/Codeine [Tylenol /Codeine # 3 tab] 1 tab PO Q6H PRN #12 tab PRN Reason: Pain , Severe (7-10) Referrals: PRIMARY CARE, [Referring] - 3-5 Days HERMES MOHAN MD [Staff Physician] - 3-5 Days [facility] [Outside] - 3-5 Days
== END 2018-11-15 19:05 | disposition home or self-care (01) ==
LOC: ED 13:36
DX: K05.10 Chronic gingivitis, plaque induced (principal); E78.00 Pure hypercholesterolemia, unspecified; I10 Essential (primary) hypertension; M19.90 Unspecified osteoarthritis, unspecified site; Z88.2 Allergy status to sulfonamides; Z79.82 Long term (current) use of aspirin; Z90.710 Acquired absence of both cervix and uterus
CPT/HCPCS: 99281

== ENCOUNTER 2019-06-21 15:43 | Emergency (ER) | payer MEDICARE, OTHER ==
--- NOTE | 2019-06-21 16:48 | Emergency Department Report ---
Blank Doc - Documentation Documentation: 68-year-old female that presents with abdominal pain and nausea. This initial assessment/diagnostic orders/clinical plan/treatment(s) is/are subject to change based on patient's health status, clinical progression and re- assessment by fellow clinical providers in the ED. Further treatment and workup at subsequent clinical providers discretion. Patient/guardians urged not to elope from the ED as their condition may be serious if not clinically assessed and managed. Initial orders include: 1- Patient sent to [facility] for further evaluation and treatment 2- labs 3- UA
[2019-06-21 17:18] LABS: Bilirubin,Urine NEG (Negative); Blood,Urine NEG (Negative); Color,Urine Straw (Yellow); Protein,Urine <15 mg/dL mg/dL (Negative); Urobilinogen,Urine < 2.0 mg/dL (<2.0)
[2019-06-21] MEDS ORDERED: ACETAMINOPHEN 325 MG TAB PO ONE (17:21)
[2019-06-21] MEDS ORDERED: FAMOTIDINE 20 MG TAB PO ONE (17:21)
[2019-06-21 17:25] LABS: Basophils # (Auto) 0.1 K/mm3 (0.0-0.1); Basophils % (Auto) 0.6 % (0.0-1.8); Eosinophils # (Auto) 0.1 K/mm3 (0.0-0.4); Eosinophils % (Auto) 0.9 % (0.0-4.3); Hematocrit 39.5 % (30.3-42.9); Lymphocytes # (Auto) 2.5 K/mm3 (1.2-5.4); Lymphocytes % (Auto) 22.8 % (13.4-35.0); Mean Corpuscular HGB Conc 33 % (30-34); Mean Corpuscular Volume 89 fl (79-97); Monocytes # (Auto) 0.4 K/mm3 (0.0-0.8); Monocytes % (Auto) 3.7 % (0.0-7.3); Platelet Count 257 K/mm3 (140-440); Red Blood Count 4.44 M/mm3 (3.65-5.03); Red Cell Distribution Width 13.2 % (13.2-15.2)
[2019-06-21 17:37] LABS: Alanine Aminotransferase 13 units/L (7-56); Albumin 4.7 g/dL (3.9-5); BUN/Creatinine Ratio 11; Blood Urea Nitrogen 9 mg/dL (7-17); Calcium 10.5 mg/dL (8.4-10.2); Hemolysis Index 8
[2019-06-21] MEDS ORDERED: LIDOCAINE VISCOUS 2% 15 ML ORAL LIQD PO ONE (19:09)
[2019-06-21] MEDS ORDERED: ALUM-MAG HYDROXIDE-SIMETHICONE 200-200-20MG/5ML ORAL LIQD 30 ML PO ONE (19:09)
--- NOTE | 2019-06-21 19:10 | Emergency Department Report ---
HPI - General Chief Complaint: Abdominal Pain Time Seen by Provider: 06/21/19 16:46 - HPI HPI: Room 44 The patient is a 68-year-old female presenting with a chief complaint of abdominal pain. The patient states for the past 2-3 days she's had intermittent midepigastric abdominal pain that is sharp in nature. Patient denies nausea vomiting or diarrhea. Patient denies fever. Patient states the pain occasionally radiates to her back. The patient currently gets her pain a score of 9/10 Location: [See above] Duration: [See above] Quality: [See above] Severity: [See above] Timing: [See above] Context: [See above] Modifying factors: [See above] Associated signs and symptoms: [see above] ED Past Medical Hx - Past Medical History Hx Hypertension: Yes Hx Arthritis: Yes Additional medical history: Psoriasis, elevated cholesterol - Surgical History Additional Surgical History: Hysterectomy - Family History Family history: no significant - Social History Smoking Status: Never Smoker Substance Use Type: None (denies illicit drug use), Alcohol (occasional) - Medications Home Medications: Home Medications Medication Instructions Recorded Confirmed Last Taken Type Aspirin EC [Halfprin EC] 81 mg PO ONCE #30 tablet. 03/10/13 07/21/15 07/21/15 Rx Simvastatin [Zocor TAB] 20 mg PO QHS #30 tablet 03/10/13 07/21/15 07/21/15 Rx Amoxicillin/K Clav Tab [Augmentin 1 each PO Q12HR #14 tablet 07/24/15 Unknown Rx 500 MG TAB] ALBUTEROL Inhaler (OR & NICU) 2 puff IH QID PRN #1 inhalation 02/19/16 Unknown Rx [ProAir HFA Inhaler] Fluticasone [Flonase] 1 spray NS QDAY #1 bottle 02/19/16 Unknown Rx guaiFENesin/CODEINE [Robitussin AC] 5 ml PO Q6H PRN #100 oral.liqd 02/19/16 Unknown Rx HYDROcodone/APAP 7.5-325 [[place] 1 each PO Q6HR PRN #20 tablet 04/04/17 Unknown Rx 7.5/325] Ibuprofen [Motrin 800 MG tab] 800 mg PO Q8HR PRN #30 tablet 04/04/17 Unknown Rx Methocarbamol [Robaxin-750] 1,500 mg PO TID #30 tablet 04/04/17 Unknown Rx ALBUTEROL Inhaler (OR & NICU) 2 puff IH QID PRN #1 inhalation 03/20/18 Unknown Rx [ProAir HFA Inhaler] Benzonatate [Tessalon Perles] 100 mg PO Q8HR #10 capsule 03/20/18 Unknown Rx predniSONE [Deltasone] 20 mg PO QDAY #5 tab 03/20/18 Unknown Rx DOXYCYCLINE Hyclate [Vibramycin 100 mg PO Q12HR #14 capsule 08/18/18 Unknown Rx CAP] Phenazopyridine [Pyridium] 100 mg PO TID 2 Days tab 08/18/18 Unknown Rx traMADoL [Ultram] 50 mg PO Q6HR PRN #10 tablet 08/18/18 Unknown Rx Acetaminophen/Codeine [Tylenol 1 tab PO Q6H PRN #12 tab 11/15/18 Unknown Rx /Codeine # 3 tab] Amoxicillin [Amoxicillin TAB] 875 mg PO BID #20 tablet 11/15/18 Unknown Rx Chlorhexidine Mouthwash [Peridex] 15 ml MM BID #1 bottle 11/15/18 Unknown Rx ED Review of Systems ROS: Stated complaint: STOMACH/BACK PAIN Other details as noted in HPI Constitutional: denies: fever Eyes: denies: eye pain ENT: denies: throat pain Respiratory: no symptoms reported Cardiovascular: denies: chest pain Endocrine: no symptoms reported Gastrointestinal: abdominal pain. denies: nausea, vomiting, diarrhea Genitourinary: urgency Musculoskeletal: back pain Neurological: denies: headache Physical Exam - Physical Exam Vital Signs: Vital Signs 06/21/19 16:47 Temperature 98.5 F Pulse Rate 81 Respiratory 18 Rate Blood Pressure 149/74 O2 Sat by Pulse 100 Oximetry Physical Exam: GENERAL: The patient is well-developed well-nourished female sitting in chair not appearing to be in acute distress. [] HEENT: Normocephalic. Atraumatic. Extraocular motions are intact. Patient has moist mucous membranes. NECK: Supple. Trachea midline CHEST/LUNGS: Clear to auscultation. There is no respiratory distress noted. HEART/CARDIOVASCULAR: Regular. There is no tachycardia. There is no gallop rub or murmur. ABDOMEN: Abdomen is soft, with diffuse tenderness to palpation greatest in the epigastric and right upper quadrant. There is no rebound or guarding. Patient has normal bowel sounds. There is no abdominal distention. SKIN: There is no rash. There is no edema. There is no diaphoresis. NEURO: The patient is awake, alert, and oriented. The patient is cooperative. The patient has normal speech MUSCULOSKELETAL: There is no evidence of acute injury. ED Course Vital Signs 06/21/19 16:47 Temperature 98.5 F Pulse Rate 81 Respiratory 18 Rate Blood Pressure 149/74 O2 Sat by Pulse 100 Oximetry - Reevaluation(s) Reevaluation #1: 06/21/19 21:08 CT scan discussed with patient. Patient verbalized understanding of incarcerated hernia with increased risk of morbidity and/or mortality should she leave the hospital AGAINST MEDICAL ADVICE. Patient states she wishes to have a second pain and wishes to go home discussed with her family first. I explained to the patient that her condition may devolve and she can become much sicker with increased mortality should she leave the hospital against medical but. Patient verbalizes understanding. Patient informed that she should return to the emergency department immediately should she change her mind. Patient verbalized understanding - Consultations Consultation #1: 06/21/19 20:59 Surgery paged 06/21/19 21:04 Case discussed with surgeon Dr. Menchaca- recommends NG tube be placed and have patient admitted by hospitalist, we will evaluate images - Procedure Description Procedures done: Attempted ventral hernia reduction by use of direct pressure unsuccessful ED Medical Decision Making - Lab Data Result diagrams: 06/21/19 16:58 06/21/19 16:58 Laboratory Tests 06/21/19 06/21/19 06/21/19 16:58 16:58 16:58 WBC 10.8 RBC 4.44 Hgb 13.0 Hct 39.5 MCV 89 MCH 29 MCHC 33 RDW 13.2 Plt Count 257 Lymph % (Auto) 22.8 [facility] % (Auto) 3.7 Eos % (Auto) 0.9 Baso % (Auto) 0.6 Lymph # 2.5 [facility] # 0.4 Eos # 0.1 Baso # 0.1 Seg Neutrophils % 72.0 H Seg Neutrophils # 7.8 H Sodium 141 Potassium 3.0 L Chloride 98.3 Carbon Dioxide 28 Anion Gap 18 BUN 9 Creatinine 0.8 Estimated GFR > 60 BUN/Creatinine Ratio 11 Glucose 108 H Calcium 10.5 H Total Bilirubin 0.70 AST 21 ALT 13 Alkaline Phosphatase 76 Troponin T < 0.010 Total Protein 8.8 H Albumin 4.7 Albumin/Globulin Ratio 1.1 Lipase 29 Urine Color Urine Turbidity Urine pH Ur Specific [place] Urine Protein Urine Glucose (UA) Urine Ketones Urine Blood Urine Nitrite Urine Bilirubin Urine Urobilinogen Ur Leukocyte Esterase Urine WBC (Auto) Urine RBC (Auto) U Epithel Cells (Auto) 06/21/19 17:01 WBC RBC Hgb Hct MCV MCH MCHC RDW Plt Count Lymph % (Auto) [facility] [place] % (Auto) Eos % (Auto) Baso % (Auto) Lymph # [facility] # Eos # Baso # Seg Neutrophils % Seg Neutrophils # Sodium Potassium Chloride Carbon Dioxide Anion Gap BUN Creatinine Estimated GFR BUN/Creatinine Ratio Glucose Calcium Total Bilirubin AST ALT Alkaline Phosphatase Troponin T Total Protein Albumin Albumin/Globulin Ratio Lipase Urine Color Straw Urine Turbidity Clear Urine pH 7.0 Ur Specific [place] 1.010 Urine Protein <15 mg/dl Urine Glucose (UA) Neg Urine Ketones Neg Urine Blood Neg Urine Nitrite Neg Urine Bilirubin Neg Urine Urobilinogen < 2.0 Ur Leukocyte Esterase Neg Urine WBC (Auto) 1.0 Urine RBC (Auto) 1.0 U Epithel Cells (Auto) < 1.0 - Radiology Data Radiology results: report reviewed (CT abdomen and pelvis), image reviewed (CT abdomen and pelvis) [place] [address] Cat Scan Report Signed Patient: PETRA THAKUR MR#: [id number] : 1950 Acct:[id number] Age/Sex: 68 / F ADM Date: 06/21/19 Loc: ED Attending Dr: Ordering Physician: Cady Guerrero MD Date of Service: 06/21/19 Procedure(s): CT abdomen pelvis w con Accession Number(s): [id number] cc: Cady Guerrero MD CT abdomen pelvis w con INDICATION: abdominnal pain. TECHNIQUE: All CT scans at this location are performed using the following dose modulation technique: Automated exposure control. CONTRAST: Omnipaque 350, 100 cc IV injection. COMPARISON: 07/21/2015. CT abdomen: Evaluation of the parenchymal organs demonstrates benign-appearing hepatic cysts. The largest is within the right lobe anteriorly measuring 5.7 cm. The left kidney contains small cysts. The remaining parenchymal organs are unremarkable. Negative for abdominal mass, fluid or inflammation. The bowel is not dilated or thickened. CT PELVIS: Incarcerated hernia ventrally to the left of midline just above the u mbilicus. There is resultant localized wall thickening and mild dilatation proximally. Negative for pelvic fluid. Sigmoid diverticula are noninflamed. Status post previous hysterectomy. IMPRESSION: 1. Incarcerated ventral hernia with associated wall thickening and mild adjacent edema. There is also likely low-grade obstruction. 2. Benign-appearing hepatic and left renal cyst. Signer Name: Kash Osorio MD Signed: 06/21/2019 7:51 PM Workstation Name: [id number] Transcribed By: ES Dictated By: Kash Osorio MD Electronically Authenticated By: Kash Osorio MD Signed Date/Time: 06/21/191950 DD/ 39 TD/TT: - Differential Diagnosis peptic ulcer disease, pancreatitis, cholelithiasis, ACS, GERD Critical care attestation.: If time is entered above; I have spent that time in minutes in the direct care of this critically ill patient, excluding procedure time. ED Disposition Clinical Impression: Acute abdominal pain, Incarcerated ventral hernia Disposition: DC-07 LEFT AGAINST MED ADVICE Is pt being admited?: No Does the pt Need Aspirin: No Condition: Serious Instructions: Abdominal Pain (ED) Time of Disposition: 21:09 (patient leaving AMA)
[2019-06-21] MEDS ORDERED: POTASSIUM CHLORIDE ER 20 MEQ TAB PO ONE (19:11)
--- NOTE | 2019-06-21 19:55 | Cat Scan Report ---
CT abdomen pelvis w con INDICATION: abdominnal pain. TECHNIQUE: All CT scans at this location are performed using the following dose modulation technique: Automated exposure control. CONTRAST: Omnipaque 350, 100 cc IV injection. COMPARISON: 07/21/2015. CT abdomen: Evaluation of the parenchymal organs demonstrates benign-appearing hepatic cysts. The lar gest is within the right lobe anteriorly measuring 5.7 cm. The left kidney contains small cysts. The remaining parenchymal organs are unremarkable. Negative for abdominal mass, fluid or inflammation. The bowel is not dilated or thickened. CT PELVIS: Incarcerated hernia ventrally to the left of midline just above the umbilicus. There is re sultant localized wall thickening and mild dilatation proximally. Negative for pelvic fluid. Sigmoid diverticula are noninflamed. Status post previous hysterectomy. IMPRESSION: 1. Incarcerated ventral hernia with associated wall thickening and mild adjacent edema. There is also likely low-grade obstruction. 2. Benign-appearing hepatic and left renal cyst. Signer Name: Kash Osorio MD Signed: 06/21/2019 7:51 PM Workstation Name: [id number]
[2019-06-21 20:55] VITALS: BP 154/83
--- NOTE | 2019-06-21 21:17 | Cat Scan Report ---
CT abdomen wo con INDICATION / CLINICAL INFORMATION: status post ventral hernia reduction attempt. TECHNIQUE: All CT scans at this location are performed using CT dose reduction for ALARA by means of automated e xposure control. COMPARISON: 06/21/2019 at 1913 hours FINDINGS: Following attempted reduction of the ventral hernia, the incarcerated loop of small bowel remains her niated. Edematous thickening of the bowel wall is noted without pneumatosis. There is mild fluid distention p roximally. No other interval changes. IMPRESSION: 1. Manipulation failed to reduce the incarcerated midline ventral hernia. Signer Name: Kp Gama MD Signed: 06/21/2019 9:12 PM Workstation Name: [id number]
== END 2019-06-21 21:27 | disposition left against medical advice (07) ==
LOC: ED 15:43
DX: K43.6 Other and unspecified ventral hernia with obstruction, without gangrene (principal); I10 Essential (primary) hypertension; Z90.710 Acquired absence of both cervix and uterus; Z88.2 Allergy status to sulfonamides
CPT/HCPCS: 36415; 74150; 74177; 80053; 81001; 83690; 84484; 85025; 87086; 99284; Q9967

== ENCOUNTER 2022-01-10 14:24 | Emergency (ER) | payer BC, MEDICARE ==
--- NOTE | 2022-01-10 16:27 | Emergency Department Report ---
ED Fall HPI - General Chief Complaint: Fall Stated Complaint: FALL/FULL BODY PAIN Time Seen by Provider: 01/10/22 16:22 Source: patient Mode of arrival: Ambulatory - History of Present Illness Initial Comments: Walking out of kitchen to bedroom and tripped over carpet landing awkwardly. Complaint: fall -: Sudden Fall From: standing When Fall Occurred: # days MATTRESS STUFFER (1. yesterday evening at 1900) Place Fall Occurred: home Loss of Consciousness: none Prolonged Down Time?: no Symptoms Prior to Fall: none - Related Data Previous Rx's Medication Instructions Recorded Last Taken Type Aspirin EC [Halfprin EC] 81 mg PO ONCE #30 tablet. 03/10/13 07/21/15 Rx Simvastatin (Nf) [Zocor TAB] 20 mg PO QHS #30 tablet 03/10/13 07/21/15 Rx Amoxicillin/K Clav Tab [Augmentin 1 each PO Q12HR #14 tablet 07/24/15 Unknown Rx 500 MG TAB] Albuterol Mdi (or & Nicu Only) 2 puff IH QID PRN #1 inhalation 02/19/16 Unknown Rx [ProAir HFA Inhaler] Fluticasone [Flonase] 1 spray NS QDAY #1 bottle 02/19/16 Unknown Rx guaiFENesin/CODEINE [Robitussin AC] 5 ml PO Q6H PRN #100 oral.liqd 02/19/16 Unknown Rx HYDROcodone/APAP 7.5-325 [[place] 1 each PO Q6HR PRN #20 tablet 04/04/17 Unknown Rx 7.5/325] Ibuprofen [Motrin 800 MG tab] 800 mg PO Q8HR PRN #30 tablet 04/04/17 Unknown Rx methocarbamoL [Robaxin-750] 1,500 mg PO TID #30 tablet 04/04/17 Unknown Rx Albuterol Mdi (or & Nicu Only) 2 puff IH QID PRN #1 inhalation 03/20/18 Unknown Rx [ProAir HFA Inhaler] Benzonatate [Tessalon Perles] 100 mg PO Q8HR #10 capsule 03/20/18 Unknown Rx predniSONE [Deltasone] 20 mg PO QDAY #5 tab 03/20/18 Unknown Rx DOXYCYCLINE Hyclate [Vibramycin 100 mg PO Q12HR #14 capsule 08/18/18 Unknown Rx CAP] Phenazopyridine [Pyridium] 100 mg PO TID 2 Days tab 08/18/18 Unknown Rx traMADoL [Ultram] 50 mg PO Q6HR PRN #10 tablet 08/18/18 Unknown Rx Acetaminophen/Codeine [Tylenol 1 tab PO Q6H PRN #12 tab 11/15/18 Unknown Rx /Codeine # 3 tab] Amoxicillin [Amoxicillin TAB] 875 mg PO BID #20 tablet 11/15/18 Unknown Rx Chlorhexidine Mouthwash [Peridex] 15 ml MM BID #1 bottle 11/15/18 Unknown Rx Meloxicam [Mobic] 15 mg PO QDAY #10 tablet 01/10/22 Unknown Rx methOCARBAMOL [Robaxin] 750 mg PO Q8H PRN #21 tablet 01/10/22 Unknown Rx Allergies Allergy/AdvReac Type Severity Reaction Status Date / Time Sulfa (Sulfonamide Allergy Rash Verified 01/10/22 14:37 Antibiotics) ED Review of Systems ROS: Stated complaint: FALL/FULL BODY PAIN Other details as noted in HPI Comment: All other systems reviewed and negative ED Past Medical Hx - Past Medical History Hx Hypertension: Yes Hx CVA: No Hx Heart Attack/AMI: No Hx Congestive Heart Failure: No Hx Diabetes: No Hx Deep Vein Thrombosis: No Hx Pulmonary Embolism: No Hx GERD: No Hx Liver Disease: No Hx Renal Disease: No Hx Sickle Cell Disease: No Hx Arthritis: Yes Hx Headaches / Migraines: No Hx Seizures: No Hx Kidney Stones: No Hx Psychiatric Treatment: No Hx Asthma: No Hx COPD: No Hx Tuberculosis: No Hx Dementia: No Hx HIV: No Additional medical history: Psoriasis, elevated cholesterol - Surgical History Hx Coronary Stent: No Hx Open Heart Surgery: No Hx Pacemaker: No Hx Internal Defibrillator: No Hx Cholecystectomy: No Hx Appendectomy: No Hx Breast Surgery: No Additional Surgical History: Hysterectomy - Social History Smoking Status: Never Smoker Substance Use Type: None - Medications Home Medications: Home Medications Medication Instructions Recorded Confirmed Last Taken Type Aspirin EC [Halfprin EC] 81 mg PO ONCE #30 tablet. 03/10/13 07/21/15 07/21/15 Rx Simvastatin (Nf) [Zocor TAB] 20 mg PO QHS #30 tablet 03/10/13 07/21/15 07/21/15 Rx Amoxicillin/K Clav Tab [Augmentin 1 each PO Q12HR #14 tablet 07/24/15 Unknown Rx 500 MG TAB] Albuterol Mdi (or & Nicu Only) 2 puff IH QID PRN #1 inhalation 02/19/16 Unknown Rx [ProAir HFA Inhaler] Fluticasone [Flonase] 1 spray NS QDAY #1 bottle 02/19/16 Unknown Rx guaiFENesin/CODEINE [Robitussin AC] 5 ml PO Q6H PRN #100 oral.liqd 02/19/16 Unknown Rx HYDROcodone/APAP 7.5-325 [[place] 1 each PO Q6HR PRN #20 tablet 04/04/17 Unknown Rx 7.5/325] Ibuprofen [Motrin 800 MG tab] 800 mg PO Q8HR PRN #30 tablet 04/04/17 Unknown Rx methocarbamoL [Robaxin-750] 1,500 mg PO TID #30 tablet 04/04/17 Unknown Rx Albuterol Mdi (or & Nicu Only) 2 puff IH QID PRN #1 inhalation 03/20/18 Unknown Rx [ProAir HFA Inhaler] Benzonatate [Tessalon Perles] 100 mg PO Q8HR #10 capsule 03/20/18 Unknown Rx predniSONE [Deltasone] 20 mg PO QDAY #5 tab 03/20/18 Unknown Rx DOXYCYCLINE Hyclate [Vibramycin 100 mg PO Q12HR #14 capsule 08/18/18 Unknown Rx CAP] Phenazopyridine [Pyridium] 100 mg PO TID 2 Days tab 08/18/18 Unknown Rx traMADoL [Ultram] 50 mg PO Q6HR PRN #10 tablet 08/18/18 Unknown Rx Acetaminophen/Codeine [Tylenol 1 tab PO Q6H PRN #12 tab 11/15/18 Unknown Rx /Codeine # 3 tab] Amoxicillin [Amoxicillin TAB] 875 mg PO BID #20 tablet 11/15/18 Unknown Rx Chlorhexidine Mouthwash [Peridex] 15 ml MM BID #1 bottle 11/15/18 Unknown Rx Meloxicam [Mobic] 15 mg PO QDAY #10 tablet 01/10/22 Unknown Rx methOCARBAMOL [Robaxin] 750 mg PO Q8H PRN #21 tablet 01/10/22 Unknown Rx ED Physical Exam - General Limitations: No Limitations General appearance: alert, in no apparent distress - Head Head exam: Present: atraumatic, normocephalic - Eye Eye exam: Present: normal appearance, PERRL, EOMI Pupils: Present: normal accommodation - ENT ENT exam: Present: normal exam, normal orophraynx, mucous membranes moist, TM's normal bilaterally - Neck Neck exam: Present: normal inspection, full ROM - Respiratory Respiratory exam: Present: normal lung sounds bilaterally. Absent: respiratory distress - Cardiovascular Cardiovascular Exam: Present: regular rate, normal rhythm. Absent: systolic murmur, diastolic murmur, rubs, gallop - GI/Abdominal GI/Abdominal exam: Present: soft, normal bowel sounds - Extremities Exam Extremities exam: Present: normal inspection, tenderness, normal capillary refill - Expanded Upper Extremity Exam Right Shoulder Exam: Present: tenderness, tenderness over AC joint, other (pain with briones and obriens test) Upper Arm exam: Present: normal inspection Elbow exam: Present: normal inspection Forearm Wrist exam: Present: normal inspection Hand Wrist exam: Present: normal inspection Vascular: Present: normal capillary refill - Back Exam Back exam: Present: normal inspection. Absent: CVA tenderness (R), CVA tenderness (L) - Neurological Exam Neurological exam: Present: alert, oriented X3, CN II-XII intact, normal gait - Psychiatric Psychiatric exam: Present: normal affect, normal mood - Skin Skin exam: Present: warm, dry, intact, normal color. Absent: rash, cyanosis, erythema ED Course Vital Signs 01/10/22 01/10/22 14:35 18:19 Temperature 99.0 F Pulse Rate 71 78 Respiratory 18 18 Rate Blood Pressure 140/66 Blood Pressure 138/70 [Right] O2 Sat by Pulse 97 96 Oximetry ED Medical Decision Making - Radiology Data Radiology results: report reviewed [facility] [address] [place] [address] XRay Report Signed Patient: PETRA THAKUR MR#: [id number] : 1950 Acct:[id number] Age/Sex: 71 / F ADM Date: 01/10/22 Loc: ED Attending Dr: Ordering Physician: MARIBELL KNOTT Date of Service: 01/10/22 Procedure(s): XR shoulder 2+V RT Accession Number(s): [id number] cc: MARIBELL KNOTT Fluoro Time In Minutes: RIGHT SHOULDER 3 VIEWS INDICATION / CLINICAL INFORMATION: Pain in right shoulder after fall one day ago. COMPARISON: None available. FINDINGS: BONES and JOINT(S): No acute fracture or subluxation. There is moderate glenohumeral degenerative arthrosis and mild degenerative arthrosis of the AC joint. A large inferior acromial enthesophyte is present. SOFT TISSUES: No significant abnormality. ADDITIONAL FINDINGS: None. IMPRESSION: 1. No acute findings. 2. Degenerative changes as above including a large acromial enthesophyte that may result in rotator cuff impingement. Signer Name: Willard Maxwell MD Signed: 01/10/2022 5:06 PM Workstation Name: [email or web address] Transcribed By: BETTYE Dictated By: Willard Maxwell MD Electronically Authenticated By: Willard Maxwell MD Signed Date/Time: 01/10/221705 DD/ 03 TD/TT: [facility] [address] [place] [address] XRay Report Signed Patient: PETRA THAKUR MR#: [id number] : 1950 Acct:[id number] Age/Sex: 71 / F ADM Date: 01/10/22 Loc: ED Attending Dr: Ordering Physician: MARIBELL KNOTT Date of Service: 01/10/22 Procedure(s): XR spine cervical 2-3V Accession Number(s): [id number] cc: MARIBELL KNOTT Fluoro Time In Minutes: CERVICAL SPINE 4 VIEWS INDICATION: Neck pain after fall one day ago. COMPARISON: No relevant prior imaging study available. FINDINGS: VERTEBRAE: No acute fracture. Normal alignment. DISC SPACES: Multilevel mild discogenic degenerative changes are seen. FACET JOINTS: There is multilevel bilateral facet arthropathy. SOFT TISSUES: No significant abnormality. ADDITIONAL FINDINGS: No additional significant findings. IMPRESSION: 1. No acute findings. 2. Mild cervical spondylosis. Signer Name: Willard Maxwell MD Signed: 01/10/2022 5:07 PM Workstation Name: [id number] Transcribed By: BETTYE Dictated By: Willard Maxwell MD Electronically Authenticated By: Willard Maxwell MD Signed Date/Time: 01/10/221706 DD/ 05 TD/TT: Critical care attestation.: If time is entered above; I have spent that time in minutes in the direct care of this critically ill patient, excluding procedure time. ED Disposition Clinical Impression: Fall, Cervical strain, Shoulder contusion, DJD (degenerative joint disease) Disposition: HOME / SELF CARE / HOMELESS Is pt being admited?: No Does the pt Need Aspirin: No Condition: Stable Prescriptions: Meloxicam [Mobic] 15 mg PO QDAY #10 tablet methOCARBAMOL [Robaxin] 750 mg PO Q8H PRN #21 tablet PRN Reason: Spasms Referrals: [facility] [Provider Group] - 3-5 Days
--- NOTE | 2022-01-10 17:10 | XRay Report ---
RIGHT SHOULDER 3 VIEWS INDICATION / CLINICAL INFORMATION: Pain in right shoulder after fall one day ago. COMPARISON: None available. FINDINGS: BONES and JOINT(S): No acute fracture or subluxation. There is moderate glenohumeral degenerative art hrosis and mild degenerative arthrosis of the AC joint. A large inferior acromial enthesophyte is pre sent. SOFT TISSUES: No significant abnormality. ADDITIONAL FINDINGS: None. IMPRESSION: 1. No acute findings. 2. Degenerative changes as above including a large acromial enthesophyte that may result in rotator c uff impingement. Signer Name: Willard Maxwell MD Signed: 01/10/2022 5:06 PM Workstation Name: [email or web address]
--- NOTE | 2022-01-10 17:12 | XRay Report ---
CERVICAL SPINE 4 VIEWS INDICATION: Neck pain after fall one day ago. COMPARISON: No relevant prior imaging study available. FINDINGS: VERTEBRAE: No acute fracture. Normal alignment. DISC SPACES: Multilevel mild discogenic degenerative changes are seen. FACET JOINTS: There is multilevel bilateral facet arthropathy. SOFT TISSUES: No significant abnormality. ADDITIONAL FINDINGS: No additional significant findings. IMPRESSION: 1. No acute findings. 2. Mild cervical spondylosis. Signer Name: Willard Maxwell MD Signed: 01/10/2022 5:07 PM Workstation Name: [email or web address]
[2022-01-10 18:20] VITALS: BP 138/70
== END 2022-01-10 18:19 | disposition home or self-care (01) ==
LOC: ED 14:24
DX: S40.019A Contusion of unspecified shoulder, initial encounter (principal); S16.1XXA Strain of muscle, fascia and tendon at neck level, initial encounter; Z88.1 Allergy status to other antibiotic agents; Z79.899 Other long term (current) drug therapy; W19.XXXA Unspecified fall, initial encounter; Y93.89 Activity, other specified; Y92.89 Other specified places as the place of occurrence of the external cause; Y99.8 Other external cause status; M19.90 Unspecified osteoarthritis, unspecified site; I10 Essential (primary) hypertension
CPT/HCPCS: 72040; 99283